=== PATIENT | male | born 1955 | race Caucasian/White ===

== ENCOUNTER → 2021-01-17 | Outpatient (CLI) | payer OTHER ==
--- NOTE | 2021-01-17 10:12 | Diagnostic Imaging Report ---
INDICATION: Dysphagia. Procedure was performed in conjunction with speech pathology. Video fluoroscopy was performed during swallowing of barium in multiple consistencies. Patient ingested thin liquid as well as puree, banana, ground meat and cracker consistency. Total of 1 minute 10 seconds of fluoroscopic time was utilized. Oral phase unremarkable. There is normal epiglottic tilt and laryngeal elevation. No laryngeal penetration or aspiration was observed. Mild vallecular residue is noted on multiple consistencies however this did clear with a 2nd swallow. IMPRESSION: Essentially unremarkable modified barium swallow. Dictated by: Dictated on workstation # [id number]
== END ==
LOC: RAD 08:55
PROVIDERS: ATTEND Nurse Practitioner
DX: R13.10 Dysphagia, unspecified (principal); C92.A0 Acute myeloid leukemia with multilineage dysplasia, not having achieved remission; I10 Essential (primary) hypertension; M17.0 Bilateral primary osteoarthritis of knee; G47.33 Obstructive sleep apnea (adult) (pediatric); E78.2 Mixed hyperlipidemia; R06.00 Dyspnea, unspecified; E55.9 Vitamin D deficiency, unspecified; K63.5 Polyp of colon
CPT/HCPCS: 74230

== ENCOUNTER → 2023-01-17 | Outpatient (CLI) | payer OTHER ==
[~2023-01-17] MED LIST: BARIUM for suspension 96% w/w (Vanilla Silq Medium Density) PO ONE; BARIUM for suspension 98% w/w (Vanilla Silq High Density) PO ONE
--- NOTE | 2023-01-17 09:57 | Diagnostic Imaging Report ---
INDICATION: Difficulty swallowing, choking on solids. TECHNIQUE: The patient ingested effervescent crystals as well as thin and thick barium and imaging over the esophagus was performed in multiple obliquities. 52 seconds of fluoroscopic time was also utilized. FINDINGS: The preliminary radiograph of the chest is unremarkable. The esophagus has a fairly smooth contour. No mass is identified. There does appear to be a segment of luminal narrowing in the distal esophagus just above the GE junction. This is fairly smooth and may represent a stricture. No gastroesophageal reflux is seen. No significant hiatal hernia is identified. IMPRESSION: There is a short segment of luminal narrowing of the distal esophagus, suspicious for a short stricture. No discrete mass is identified. Dictated by: Dictated on workstation # [id number]
== END ==
LOC: RAD 08:34
PROVIDERS: ATTEND Surgery
DX: K22.2 Esophageal obstruction (principal)
CPT/HCPCS: 74220

== ENCOUNTER 2023-01-24 05:36 | Outpatient (CLI) | payer OTHER ==
[~2023-01-24] VITALS: Ht 180.3 cm; Wt 131.5 kg
[2023-01-25] MEDS ORDERED: METF-399 PO (10:36)
[2023-01-25] MEDS ORDERED: LEVO25TA2 PO (10:36)
[2023-01-25] MEDS ORDERED: TADA5TAB13 PO (12:02)
[2023-01-25] MEDS ORDERED: HYDR-4164 PO (12:02)
[2023-01-25] MEDS ORDERED: CARB1DRO51 OP (12:02)
[2023-01-25] MEDS ORDERED: POTA-51 PO (12:02)
[2023-01-25] MEDS ORDERED: ERGO1250 PO (12:02)
[2023-01-25] MEDS ORDERED: SULF-11 PO (12:02)
[2023-01-25] MEDS ORDERED: MONT-40 PO (12:02)
[2023-01-25] MEDS ORDERED: TMSL.4C PO (12:02)
[2023-01-25] MEDS ORDERED: CARV25TA PO (12:02)
[2023-01-25] MEDS ORDERED: FURO40TA4 PO (12:02)
[2023-01-25] MEDS ORDERED: FLUT15.845 NS (12:02)
[2023-01-25] MEDS ORDERED: ROSU10TA28 PO (12:02)
[2023-01-25] MEDS ORDERED: FLUT1BLS10 IH (12:02)
[2023-01-25] MEDS ORDERED: ASPI-999 PO (12:02)
== END 2023-01-25 12:11 | disposition home or self-care (01) ==
LOC: PREOP 05:36
PROVIDERS: ATTEND Surgery
DX: Z01.818 Encounter for other preprocedural examination (principal)

== ENCOUNTER 2023-02-02 07:22 | Day surgery (SDC) | payer OTHER ==
[~2023-02-02] VITALS: Ht 180.3 cm; Wt 131.5 kg
[~2023-02-02 07:22] MED LIST changes: +ASPI-999 PO; -BARIUM for suspension 96% w/w (Vanilla Silq Medium Density) PO ONE; -BARIUM for suspension 98% w/w (Vanilla Silq High Density) PO ONE; +CARB1DRO51 OP; +CARV25TA PO; +ERGO1250 PO; +FLUT15.845 NS; +FLUT1BLS10 IH; +FURO40TA4 PO; +HYDR-4164 PO; +LEVO25TA2 PO; +METF-399 PO; +MONT-40 PO; +POTA-51 PO; +ROSU10TA28 PO; +SULF-11 PO; +TADA5TAB13 PO; +TMSL.4C PO
[2023-02-02] MEDS ORDERED: HURRICAINE EXT TUBE (BENZOCAINE) XX PRN (07:30)
[2023-02-02] MEDS ORDERED: LACTATED RINGERS 1,000 ML IV STA (07:30)
[2023-02-02 07:37] VITALS: BP 140/76
[2023-02-02] MEDS ORDERED: KETAMINE 50 MG/5 ML SYRINGE ONE (07:43)
[2023-02-02] MEDS ORDERED: PROPOFOL INJECTION 50 ML IV ONE (07:43)
[2023-02-02] MEDS ORDERED: MIDAZOLAM 2 MG/2 ML (VERSED) VIAL ONE (07:43)
--- NOTE | 2023-02-02 07:47 | Progress Note-Pre Operative ---
Pre-Operative Progress Note Date H&P Reviewed: February 02, 2023 Time H&P Reviewed: 07:40 History & Physical: H&P Reviewed, Patient Examed, No changes noted Pre-Operative Diagnosis: dysphagia JONNY BARRETT DO February 02, 2023 07:47
[2023-02-02 08:05] VITALS: BP 147/73
[2023-02-02 08:10] VITALS: BP 151/73
[2023-02-02] MEDS ORDERED: PANT40TA2 PO (08:33)
--- NOTE | 2023-02-02 08:34 | Discharge Inst-Simple/Standard ---
Discharge Inst-Standard Discharge Medications New, Converted or Re-Newed RX: Transmitted to Pharmacy Patient Instructions/Follow Up Plan of Care/Instructions/FU: 3 weeks Gillian Activity as Tolerated: Yes Discharge Diet: Regular Diet JONNY BARRETT DO February 02, 2023 08:34
--- NOTE | 2023-02-02 08:35 | Progress Note-Post Operative ---
Post-Operative Progess Note Surgeon (s)/Mri Tech (s) Surgeon JONNY BARRETT DO Mri Tech: na Pre-Operative Diagnosis dysphagia Post-Operative Diagnosis reflux esophagitis Procedure & Operative Findings Date of Procedure 02/02/23 Procedure Performed/Findings egd c biopsies Anesthesia Type per core setter Estimated Blood Loss Estimated blood loss (mL): none Specimens/Packing Specimens Removed antrum, ge JONNY BARRETT DO February 02, 2023 08:35
[2023-02-02 08:41] VITALS: BP 134/65
[2023-02-02 08:50] VITALS: BP 134/65
--- NOTE | 2023-02-02 16:40 | OPERATIVE REPORT ---
DATE OF SERVICE: 02/02/2023 PREOPERATIVE DIAGNOSIS: Dysphagia. POSTOPERATIVE DIAGNOSIS: Reflux esophagitis. PROCEDURES: EGD with biopsy. SURGEON: Jonny French DO ANESTHESIA: Per PSYCH TECH. ESTIMATED BLOOD LOSS: None. COMPLICATIONS: None. INDICATIONS: The patient is a 67-year-old male with dysphagia symptoms. He understands risks and benefits of procedure and wished to proceed. Consent was signed in chart. DESCRIPTION OF PROCEDURE: The patient was taken to the endoscopy suite, placed in left lateral recumbent position. Timeout was performed. Scope was inserted in the mouth, down the esophagus, stomach, into the duodenum without difficulty. No polyps, masses or ulcerations in the duodenum. Scope was slowly retracted back into the stomach where it was further insufflated. Slight erythematous changes. No polyps, masses or ulcerations. Biopsy of the antrum was obtained. Scope was retroflexed noting no other pathology. Scope was returned to its normal position, slowly withdrawn until distal esophagus, Changes of reflux esophagitis present. Biopsy of GE junction was obtained. Scope was slowly retracted back until completely removed, noting no other pathology. The patient tolerated the procedure well without complications, taken to recovery room in stable condition. RECOMMENDATIONS: The patient will be started on Protonix 40 mg daily. We will have him follow up in approximately 2-3 weeks to review pathology results and see how symptoms are doing at that time. Job ID: [id number] DocumentID: [id number] Dictated Date: 02/02/2023 08:39:55 Filing Or Registry Clerk Date: 02/02/2023 16:39:00 Dictated By: JONNY FRENCH DO [facility]
== END 2023-02-02 08:53 | disposition home or self-care (01) ==
LOC: ENDO 07:22
PROVIDERS: ATTEND Surgery
DX: K21.00 Gastro-esophageal reflux disease with esophagitis, without bleeding (principal); K31.89 Other diseases of stomach and duodenum; K29.70 Gastritis, unspecified, without bleeding; E66.01 Morbid (severe) obesity due to excess calories; Z68.41 Body mass index [BMI] 40.0-44.9, adult; Z87.19 Personal history of other diseases of the digestive system